=== PATIENT | female | born 1955 | race African-American/Black ===

== ENCOUNTER 2018-07-23 17:29 | Emergency (ER) | payer MEDICARE, MEDICAID ==
[~2018-07-23] VITALS: Ht 160 cm; Wt 82.0 kg
[~2018-07-23 17:29] MED LIST: HYDR-4005 PO; LEDI1TAB PO; MELO-106 PO; NAPR375T PO; NIFE30TA83 PO
[2018-07-23] MEDS ORDERED: MORPHINE SULFATE 4 MG/ML CPJ (NOT FOR IM USE) IV STA (22:02)
[2018-07-23] MEDS ORDERED: SODIUM CHLORIDE 0.9% 1,000 ML IV ONE (22:02)
[2018-07-23] MEDS ORDERED: ONDANSETRON HCL 4MG/2ML INJ IV STA (22:02)
[2018-07-23 22:56] LABS: BASOPHILS % 0.4 % (0.0-2.0); EOSINOPHILS % 2.1 % (0.0-5.0); HEMATOCRIT. 37.2 % (36.0-48.0); HEMOGLOBIN. 12.2 g/dL (12.0-16.0); LYMPHOCYTES % 35.7 % (20.0-50.0); MEAN CORPUSCULAR HEMOGLOBIN 30.3 pg (28.0-32.0); MEAN CORPUSCULAR VOLUME 92.5 fL (81.0-99.0); MEAN PLATELET VOLUME 8.5 fl (7.4-10.4); MONOCYTES % 5.2 % (2.0-8.0); NEUTROPHILS % 56.6 % (40.0-76.0); PLATELET 217 x1000/uL (130-400); RED BLOOD CELL COUNT 4.02 mill/uL (4.2-5.4); RED CELL DISTRIBUTION WIDTH 14.8 % (11.6-14.6)
[2018-07-23 23:02] LABS: CHLORIDE 109 mEq/L (98-107)
[2018-07-24 00:01] LABS: PROTHROMBIN TIME 10.1 sec (9.1-11.1)
[2018-07-24 00:42] VITALS: BP 108/56
== END 2018-07-24 00:46 | disposition home or self-care (01) ==
LOC: ER 17:29
DX: K80.20 Calculus of gallbladder without cholecystitis without obstruction (principal); R10.32 Left lower quadrant pain; R10.84 Generalized abdominal pain; J45.909 Unspecified asthma, uncomplicated; I10 Essential (primary) hypertension; F17.200 Nicotine dependence, unspecified, uncomplicated; Z96.653 Presence of artificial knee joint, bilateral; Z79.899 Other long term (current) drug therapy
CPT/HCPCS: 36415; 74176; 80053; 83690; 85025; 85610; 96374; 96375; 99284; J2270; J2405; J7030

== ENCOUNTER 2023-09-22 16:19 | Emergency (ER) | payer OTHER, MEDICAID ==
[~2023-09-22] VITALS: Ht 165.1 cm; Wt 83.0 kg
[2023-09-22 16:20] VITALS: BP 117/80; PULSE 82; RESP 19; TEMP 98; O2SAT 99
[2023-09-22] MEDS ORDERED: PERM60CR4 TP (17:48)
[2023-09-22] MEDS ORDERED: BO1 TP (17:48)
== END 2023-09-22 18:15 | disposition home or self-care (01) ==
LOC: ER 16:19
DX: T30.0 Burn of unspecified body region, unspecified degree (principal); T79.9XXA Unspecified early complication of trauma, initial encounter; J45.909 Unspecified asthma, uncomplicated; I10 Essential (primary) hypertension; Z79.899 Other long term (current) drug therapy; Z98.890 Other specified postprocedural states; X08.8XXA Exposure to other specified smoke, fire and flames, initial encounter; Y93.89 Activity, other specified; Y92.89 Other specified places as the place of occurrence of the external cause; Y99.8 Other external cause status
CPT/HCPCS: 16000; 99282